=== PATIENT | female | born 1955 | race Caucasian/White ===

== ENCOUNTER 2017-10-26 03:12 | Emergency (ER) | payer SELFPAY ==
[~2017-10-26] VITALS: Ht 157.5 cm; Wt 105.5 kg
[~2017-10-26 03:12] MED LIST: TNFMISC
[2017-10-26] MEDS ORDERED: ATOR40TA28 PO (03:27)
[2017-10-26] MEDS ORDERED: OMEP20CA10 PO (03:27)
[2017-10-26] MEDS ORDERED: CHLO100T24 PO (03:27)
[2017-10-26] MEDS ORDERED: SIMV-260 PO (03:27)
[2017-10-26] MEDS ORDERED: OXYB15TA PO (03:30)
[2017-10-26] MEDS ORDERED: SERT100T12 PO (03:30)
[2017-10-26] MEDS ORDERED: DOCU-119 PO (03:30)
[2017-10-26] MEDS ORDERED: IBUPROFEN 800 MG TABLET PO ONE (03:30)
[2017-10-26 06:43] VITALS: BP 157/85
== END 2017-10-26 07:20 | disposition home or self-care (01) ==
LOC: EMS 03:13
DX: M25.561 Pain in right knee (principal); M25.551 Pain in right hip; I10 Essential (primary) hypertension; E78.00 Pure hypercholesterolemia, unspecified; Z87.891 Personal history of nicotine dependence
CPT/HCPCS: 73502; 99284